=== PATIENT | male | born 2005 | race Hispanic/Latino ===

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

== ENCOUNTER → 2024-05-07 14:23 | Outpatient (CLI) | payer OTHER, SELFPAY | PROVIDERS: Visit Provider Physician Assistant Medical | DX: R30.0 Dysuria (principal) | CPT/HCPCS: 81002; 87086 ==

== ENCOUNTER 2025-01-26 07:20 | Emergency (ER) | payer SELFPAY ==
[2025-01-26 07:28] VITALS: BP 159/80; PULSE 89; RESP 15; TEMP 36.6; O2SAT 99; BMI 45.1
--- NOTE | 2025-01-26 07:45 | ED.UPPEXIN ---
HPI - Extremity Injury (Upper) General Chief Complaint: Extremity Injury, Upper Stated Complaint: Pain in right elbow . this morning Time Seen by Provider: 01/26/25 07:34 Source: patient Mode of arrival: Ambulatory History of Present Illness HPI narrative: Patient is a 19-year-old healthy male presenting to day with right-sided triceps pain. He reports that yesterday he went to the gym and was lifting weights. It was the 1st time in a very long time. He did not feel anything pop he did not have any kind of initial pain. He went to bed normal last night but woke up this morning in his had intense pain in his triceps. He is able to flex at his elbow no wrist or shoulder pain. A little bit of tingling no significant numbness. Related Data Allergies Allergy/AdvReac Type Severity Reaction Status Date / Time No Known Drug Allergies Allergy Verified 05/07/24 14:44 Patient History Social History Smoking Status: Never smoker Smoking Status: Never smoker alcohol intake frequency: 0-2 drinks per day Exam Initial Vital Signs Initial Vital Signs: Vital Signs Temperature 98 F 01/26/25 07:28 Pulse Rate 89 01/26/25 07:28 Respiratory Rate 15 01/26/25 07:28 Blood Pressure 159/80 H 01/26/25 07:28 Pulse Oximetry 99 01/26/25 07:28 Oxygen Delivery Method Room Air 01/26/25 07:28 GENERAL: Well-appearing, well-nourished and in no acute distress. CARDIOVASCULAR: peripheral pulses in tact, cap refill <2 sec RESPIRATORY: No respiratory distress, speaks in full sentences without difficulty EXTREMITIES: Normal range of motion, no clubbing or edema. Neurovascularly intact Right upper extremity tender in triceps area no tenderness over biceps tendon proximal or distal origin. He is able to flex his elbow distal radial pulse intact radial median and ulnar nerve sensory and motor intact NEUROLOGICAL: Cranial nerves II through XII grossly intact. Normal gait and speech. SKIN: Warm, dry, no petechiae, no rashes or lesions. Course Orders Ordered: Discontinued Medications Ibuprofen (Ibuprofen 400 Mg Tablet) 800 mg PO NOW ONE Stop: 01/26/25 07:46 Last Admin: 01/26/25 08:03 Dose: 800 mg Documented By: EB Vital Signs Vital signs: Vital Signs - 8 hr 10/14/25 07:28 Temperature 98 F Pulse Rate 89 Respiratory Rate 15 Blood Pressure 159/80 H Pulse Oximetry 99 Oxygen Delivery Method Room Air MDM - Extremity Injury (Upper) MDM Narrative Medical decision making narrative: Patient 19-year-old male presenting today with pretty significant triceps tenderness. I suspect muscle soreness from new weightlifting program. I do not see or appreciate any tendon rupture. He is neurovascularly intact. No need for imaging. Recommend supportive care. If still having pain may require outpatient MRI Discharge Plan Departure Patient Disposition: Home Clinical Impression: Sprain, tricep Instructions: DI for Elbow Sprain Activity Restrictions/Additional Instructions: *You have been diagnosed with triceps sprain *What to do: At this time ice, elevate May require MRI if still having pain *Continue to take medications as directed *Follow up with your primary care provider in 2-3 days or call [phone] *Return to ER if you should have increasing pain numbness or tingling or any new, worsening or concerning symptoms Stand Alone Forms: Patient Portal/API, Work Release Note
[2025-01-26] MEDS: IBUPROFEN 400 MG TABLET 800 MG PO (08:03)
== END 2025-01-26 08:05 | disposition home or self-care (01) ==
PROVIDERS: Emergency Provider Emergency Medicine
DX: S53.401A Unspecified sprain of right elbow, initial encounter (principal); X50.0XXA Overexertion from strenuous movement or load, initial encounter
CPT/HCPCS: 99283